=== PATIENT | female | born 1970 | race Caucasian/White ===

== ENCOUNTER 2017-09-11 23:10 | Emergency (ER) | payer SELFPAY ==
[2017-09-11] MEDS ORDERED: DIAZEPAM INJ 10 MG/2 ML DISP.SYRIN IM ONE (23:29)
--- NOTE | 2017-09-11 23:35 | ER Document Report ---
HPI - HPI Patient complains to provider of: lower back pain Pain Level: 5 Context: Patient is a 47-year-old female comes emergency department by EMS for chief complaint of back pain. She states that earlier tonight she moved a washer cutter by and turning her body to place it. She states that shortly after that she started having discomfort in her back and this gradually worsened until this evening she could hardly stand it. Pain is located in her left lower back and feels "like a spasm". She denies pain radiating down her leg. She denies numbness, fecal incontinence, inability to urinate, IV drug abuse, fever, impact injury, or any other complaints. Past Medical History - General Information source: Patient - Social History Smoking Status: Never Smoker Frequency of alcohol use: None Drug Abuse: None Lives with: Family Family History: Reviewed & Not Pertinent - Medical History Medical History: Negative Surgical Hx: Negative - Immunizations Hx Diphtheria, Pertussis, Tetanus Vaccination: Yes Vertical Provider Document - CONSTITUTIONAL General Appearance: WD/WN, Moderate Distress - Patient moving around in the bed , crying appears to be uncomfortable - INFECTION CONTROL TRAVEL OUTSIDE OF THE [place] IN LAST 30 DAYS: No - HEENT HEENT: Atraumatic, Normocephalic - NECK Neck: Normal Inspection - RESPIRATORY Respiratory: Breath Sounds Normal, No Respiratory Distress - CARDIOVASCULAR Cardiovascular: Regular Rate, Regular Rhythm - GI/ABDOMEN Gastrointestinal: Abdomen Soft, Abdomen Non-Tender - BACK Back: negative: Normal Inspection - Tender over the left paralumbar musculature , no midline tenderness, no saddle anesthesia, full range of motion of all extremities, normal distal neurovascular exam - MUSCULOSKELETAL/EXTREMETIES Musculoskeletal/Extremeties: MAEW, FROM, Non-Tender - DERM Integumentary: Warm, Dry, No Rash Course - Re-evaluation Re-evalutation: Patient was given Valium for suspected muscle spasm, she does not have midline tenderness but she does have tenderness over the left paralumbar musculature. Patient with reported mechanism for explanation, denies IVDA, denies fever, unremarkable vital signs, no concerning reported deficits, no neurologic deficits on exam. Very low suspicion of abscess, spinal cord compression, or other emergent etiology. On reevaluation patient asking for medication, however I did review patient on [employer] drug reporting system database and she is on buprenorphine even though she denied taking any medications, her last refill was 3 days ago. I did explain to patient that because of this I would not be able to give her narcotic medications to go home with but she will be treated with muscle relaxers and Toradol. Patient is calm and relaxed now, she is well-appearing. Patient and her significant other did state agreement with this plan. Discharge - Discharge Clinical Impression: Lower back pain Qualifiers: Chronicity: acute Back pain laterality: left Sciatica presence: without sciatica Qualified Code(s): M54.5 - Low back pain Condition: Stable Disposition: HOME, SELF-CARE Additional Instructions: Your evaluation is most consistent with muscular spasm after injury from the lifting movement. Recommendation is to apply heat to the area, avoid lifting and twisting, take Robaxin muscle relaxer and Toradol for pain. This should gradually improve over time. Follow-up with primary care. Return for any concerning symptoms including numbness, loss of bowel or bladder control, fever , or any other concerning or worsening symptoms. Prescriptions: Ketorolac Tromethamine [Toradol 10 mg Tablet] 10 mg PO Q8HP PRN #30 tablet PRN Reason: Methocarbamol [Robaxin 750 mg Tablet] 750 mg PO Q6 #20 tablet
[2017-09-12] MEDS ORDERED: OXYCODONE-ACETAMINOPHEN 5-325 MG TABLET PO ONE (00:08)
[2017-09-12] MEDS ORDERED: ONDANSETRON 4 MG TAB.RAPDIS PO ONE (00:08)
[2017-09-12] MEDS ORDERED: DIAZEPAM INJ 10 MG/2 ML DISP.SYRIN IM ONE (00:49)
== END 2017-09-12 01:09 | disposition home or self-care (01) ==
LOC: ER 23:10
DX: M54.5 Low back pain (principal)
CPT/HCPCS: 99283; 96372; J3360; S0119